=== PATIENT | male | born 1975 | race Hispanic/Latino ===

== ENCOUNTER 2020-04-03 11:32 | Emergency (ER) | payer OTHER ==
--- NOTE | 2020-04-03 12:19 | RAD ---
Radiograph left wrist 4 views: 04/03/2020 HISTORY: 44-year-old male with left wrist "joint pain" COMPARISON: None FINDINGS: There is a long metallic plate with multiple screws, from the distal radial diaphysis to the third me tacarpal mid diaphysis. 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 Possible ankylosis of radiocarpal joint. Signif icant portions of the wrist are obscured by the hardware. Moderate to severe joint space narrowing in other visualized CMC joints, including first and fifth. Truncation of distal ulna at the distal metadiaphysis. No acute fracture or dislocation identified. Superficial soft tissue swelling at the dorsum of the wrist. IMPRESSION: 1.) Dorsal soft tissue swelling. 2) status post arthrodesis of the wrist, with dorsal hardware. 3) ankylosis and high-grade joint space narrowing, of various joints of the wrist. 4) osteopenia of the wrist.
[2020-04-03 13:46] LABS: Bilirubin Negative (Negative); Blood, Urine Large (Negative); Clarity Clear (Clear); Glucose, Urine (Dipstick) Negative (Negative); Ketone, Urine Negative (Negative); Leukocyte Negative (Negative); Nitrite Negative (Negative); Protein, Urine (Dipstick) Negative (Neg-Trace); Specific Gravity, Urine 1.025 (1.005-1.030); Urobilinogen 0.2 mg/dL (Less than 2)
[2020-04-03 13:50] LABS: Pregnancy Test - Urine (BHCG) Negative (Negative); Pregu Control Background? CLEAR/WHITE (CLR/WHITE); Pregu Control Bar Appear? YES (CONTROL BAR); Specific Gravity 1.025
[2020-04-03 13:55] LABS: Bacteria/HPF Rare-Few HPF (None Seen); Squamous Epithelial 0-3 HPF (0-3); WBC/HPF 0-3 HPF (0-3)
[2020-04-03 14:15] LABS: #Basophils 0.1 thou/uL (0.0-0.2); #Eosinphils 0.1 thou/uL (0.0-0.7); #Lymphocytes 1.4 thou/uL (1.20-3.40); #Monocytes 0.4 thou/uL (0.11-0.59); #Neutrophils 5.2 thou/uL (1.40-6.50); %Eosinophils 1.3 % (0.0-10.0); %Lymphocytes 19.1 % (21.0-51.0); %Monocytes 6.2 % (0.0-10.0); %Neutrophils 72.5 % (42.0-75.0); Hemoglobin 13.5 g/dL (14.0-18.0); Mean Corpuscular HGB CONC 32.3 g/dL (32.0-36.0); Mean Corpuscular Hemoglobin 28.8 pg (27.0-31.0); Mean Corpuscular Volume 89.2 fL (78.0-98.0); Mean Platelet Volume 6.3 fL (7.4-10.4); Platelet Count 330 thou/uL (130-400); RBC Distribution Width 12.4 % (11.5-14.5); Red Blood Cell (RBC) Count 4.71 mill/uL (4.70-6.10); White Blood Cell (WBC) Count 7.2 thou/uL (4.8-10.8)
== END 2020-04-03 14:55 | disposition home or self-care (01) ==
LOC: MADERS 11:32
DX: M25.532 Pain in left wrist (principal); M06.9 Rheumatoid arthritis, unspecified
CPT/HCPCS: 81003; 81015; 81025; 85025; 86140; 87040